=== PATIENT | female | born 1995 | race Caucasian/White ===

== ENCOUNTER 2022-07-05 18:04 | Emergency (ER) | payer MEDICAID ==
[~2022-07-05] VITALS: Ht 149.9 cm; Wt 81.6 kg
[2022-07-05 18:35] VITALS: BP_SYST 124
--- NOTE | 2022-07-05 18:46 | NUR ---
Patient to ER bed triage to gown for evaluation. Side rails up.
--- NOTE | 2022-07-05 18:47 | NUR ---
ER in triage examining patient.
[2022-07-05 19:07] LABS: BILIRUBIN,URINE NEGATIVE (NEGATIVE); BLOOD, URINE NEGATIVE (NEGATIVE); CLARITY/URINE CLEAR (CLEAR); COLOR,URINE YELLOW (YELLOW); GLUCOSE,URINE NEGATIVE (NEGATIVE); KETONES,URINE NEGATIVE (NEGATIVE); LEUKOCYTE ESTERASE ,URINE NEGATIVE (NEGATIVE); NITRITE, URINE NEGATIVE (NEGATIVE); PROTEIN URINE NEGATIVE (NEGATIVE); UROBILINOGEN,URINE 0.2 (0.2-1.0)
[2022-07-05 19:09] LABS: BASOPHILS % (AUTO) 0.4 % (0.0-2.0); EOSINOPHILS # (AUTO) 0.2 K/uL (0.0-0.4); EOSINOPHILS % (AUTO) 1.5 % (0.0-4.0); HEMATOCRIT 40.6 % (36-48); LYMPHOCYTES # (AUTO) 2.8 K/uL (1.0-5.5); LYMPHOCYTES % (AUTO) 26.1 % (20.5-51.5); MEAN CORPUSCULAR HEMOGLOBIN 30 pg (27-31); MEAN CORPUSCULAR HGB CONC 34 % (32-36); MEAN CORPUSCULAR VOLUME 88 fL (79.0-98.0); MONOCYTES # (AUTO) 0.8 K/uL (0.0-1.0); MONOCYTES % (AUTO) 7.8 % (1.7-9.3); NEUTROPHILS % (AUTO) 64.2 % (40.0-70.0); PLATELET COUNT (AUTO) 283 K/uL (130-430); RED BLOOD CELL COUNT(AUTO) 4.64 MIL/uL (4.2-6.2); RED CELL DISTRIBUTION WIDTH 14.5 % (9.0-15.0); WHITE BLOOD COUNT (AUTO) 10.8 K/uL (4.8-10.8)
[2022-07-05 19:28] LABS: CALCIUM 8.4 mg/dL (8.4-11.0); CREATININE 0.93 mg/dL (0.55-1.30)
[2022-07-05 19:32] LABS: ALBUMIN 3.4 g/dL (3.4-4.8); TOTAL BILIRUBIN 0.3 mg/dL (0.0-1.0)
--- NOTE | 2022-07-05 19:40 | NUR ---
Pt bib self from home chief complaint right lower quadrant pain. Pt complains 7/10 pain onset this morning. Pt denies NV, denies urology discomfort. Pt denies SOB, denies chest pain, pt is sitting upright in bed with bed down and rails up.
[2022-07-05] MEDS ORDERED: KETOROLAC TROMETHAMINE 60 MG/2 ML VIAL IM ONE (20:15)
--- NOTE | 2022-07-05 20:22 | NUR ---
BROUGHT BACK TO BED #8 AND REPORT GIVEN TO DAR
--- NOTE | 2022-07-05 21:19 | NUR ---
REPORT given to Mikayla ECHEVARRIA
[2022-07-05] MEDS ORDERED: IBUP-1971 PO (22:59)
[2022-07-05 23:15] VITALS: BP_SYST 126
--- NOTE | 2022-07-05 23:20 | NUR ---
Patient given written and verbal discharge instructions and verbalizes understanding. ER MD discussed with patient the results and treatment provided. Patient in stable condition. ID arm band removed. Rx of IBUPROFEN given. Patient educated on pain management and to follow up with PMD. Pain Scale 0/10. Opportunity for questions provided and answered. Medication side effect fact sheet provided.
== END 2022-07-05 23:20 | disposition home or self-care (01) ==
LOC: SED 18:04
DX: R10.31 Right lower quadrant pain (principal); Z88.6 Allergy status to analgesic agent; Z79.899 Other long term (current) drug therapy
CPT/HCPCS: 99285; 74176; 80053; 83690; 85025; 36415; 76376; 81025; 96372; 81003; J1885